=== PATIENT | female | born 1970 | race Caucasian/White ===

== ENCOUNTER → 2021-01-22 | Outpatient (CLI) | payer OTHER ==
--- NOTE | 2021-01-22 15:34 | REP ---
INDICATION: LT BREAST LUMP. And right breast screening mammogram finding warranting further diagnostic imaging. COMPARISON: None TECHNIQUE: Bilateral diagnostic digital mammography was carried out in the CC and MLO projections using both 2D and 3D modalities. In addition, diagnostic digital magnified spot compression views of each breast were obtained in the CC and MLO projections along with diagnostic spot tomographic views. Bilateral diagnostic ultrasonography over particular regions of interest was also obtained. FINDINGS: In the right breast near the 9 o'clock position there is a tiny nodular density seen mammographically which persists on spot compression views. Diagnostic ultrasonography of that region shows a complex mixed echo lesion which measures 5 mm. In the left breast over the region of a clinically palpable mass at 6 o'clock there is no mammographic evidence for ultrasonographic evidence of an abnormality. In the left breast upper outer quadrant there is a mammographic area of asymmetry which has compressed out to normal breast parenchyma on the diagnostic spot compression views. In addition, there is a small persistent nodular density seen near the 2 o'clock position. Ultrasonography of that area shows a hypoechoic lesion which measures 3 mm without significant posterior wall enhancement or increased through transmission. This has low level echoes within it. IMPRESSION: 1. There is an abnormality seen in the right breast as described above and for which ultrasound guided biopsy is recommended. ACR category 4 right mammogram and right breast ultrasound. 2. In the left breast at the 2 o'clock position there is an abnormality seen mammographically and ultrasonographically and for which ultrasound-guided biopsy is recommended. ACR category 4 left mammogram and left breast ultrasound. 3. The area of asymmetry seen mammographically in the left breast has compressed out to normal parenchyma and no abnormality is seen in that region. 4. In the left breast in the area of a clinically palpable mass there is no mammographic or ultrasonographic abnormality. <Electronically signed by Jeffry Dow > 01/22/21 [id number]
== END ==
LOC: M WHC 11:29
PROVIDERS: ATTEND Registered Nurse
DX: N63.20 Unspecified lump in the left breast, unspecified quadrant (principal); N63.10 Unspecified lump in the right breast, unspecified quadrant
CPT/HCPCS: 76642; 77066; G0279

== ENCOUNTER → 2021-03-05 | Outpatient (CLI) | payer OTHER ==
[~2021-03-05] MED LIST: ACET325C5 PO
[2021-03-05 10:17] VITALS: BP 158/88
--- NOTE | 2021-03-05 22:21 | ROOPDOC ---
[facility] Report Of Operation Report of Operation Date of the procedure:03/06/21 Diagnosis:bilateral suspicious cystic lesions seen on screening mammogram Procedure:Ultrasound guided aspiration of bilateral breast suspicious cystic lesions Proceduralist: Nimco Lundy D.O. EBL: minimal Lidocaine 1% LOT [id number] Expiration: 10/2024 Sodium Bicarbonate 8.4% LOT [id number] Expiration: 06/2022 Procedure details: Informed consent was obtained. The most common risk and possible complications including bleeding, hematoma, bruising, infection, injury to surrounding structures were explained to the patient and she expressed understanding. Patient was taken to the procedure room and placed on the bed in the supine position. Appropriate time out was done stating patients name, date of , and the procedure to be performed. Procedure was started on the right side. The right breast was prepped and draped in the usual fashion. The ultrasound was used to confirm the location of the suspicious cyst in the right breast at 9:00 4-5 centimeters from the nipple. Plain Lidocaine 1% and 8.4% sodium bicarbonate 10:1 mix was used to anesthetize the skin, and tissues along the anticipated aspiration tract. 18 G needle was used to aspirate cyst under ultrasound guidance. Aspirated fluid was serosanguinous and was sent for cytology. About 0.5 cc was aspirated. The cyst completely collapsed and images were captured. Manual pressure over the cyst aspiration site and tract was held. No bleeding was noted upon removal of the pressure. At this time, our attention was turned toward the left breast. The left breast was prepped and draped in the usual fashion. The ultrasound was used to confirm the location of the suspicious cyst in the left breast at 2:00 4 centimeters from the nipple. Plain Lidocaine 1% and 8.4% sodium bicarbonate 10:1 mix was used to anesthetize the skin, and tissues along the anticipated aspiration tract. 18 G needle was used to aspirate cyst under ultrasound guidance. Aspirated fluid was serosanguinous and was sent for evaluation. Minimal amount fluid was removed. The cyst completely collapsed and images were captured. Manual pressure over the cyst aspiration site and tract was held. No bleeding was noted upon removal of the pressure. Post procedure bilateral mammogram was done and bilateral mammographic lesions resolved post aspiration on my interpretation of imaging. Patient tolerated procedure well. Discharge instructions were discussed with the patient and she expressed understanding NIMCO LUNDY DO Mar 05, 2021 22:21
== END ==
LOC: M WHCPRO 06:49
PROVIDERS: ATTEND Surgery
DX: D24.1 Benign neoplasm of right breast (principal); D24.2 Benign neoplasm of left breast

== ENCOUNTER → 2022-10-04 | Outpatient (CLI) | payer BC ==
[~2022-10-04] MED LIST changes: +PERC5TAB12 PO
== END ==
LOC: M EKG 10:12
PROVIDERS: ATTEND Anesthesiology
DX: Z01.810 Encounter for preprocedural cardiovascular examination (principal)

== ENCOUNTER → 2022-10-04 | Outpatient (CLI) | payer BC, OTHER ==
[~2022-10-04] MED LIST changes: -PERC5TAB12 PO
== END ==
LOC: M LABSMTC 09:58
PROVIDERS: ATTEND Anesthesiology
DX: Z01.812 Encounter for preprocedural laboratory examination (principal); Z11.52 Encounter for screening for COVID-19

== ENCOUNTER 2022-10-07 07:17 | Day surgery (SDC) | payer BC, OTHER ==
[~2022-10-07] VITALS: Ht 162.6 cm; Wt 82.0 kg
[~2022-10-07 07:17] MED LIST changes: +ceFAZolin SOD 2 GM in IV 1 EA IV ONE
[2022-10-07] MEDS ORDERED: PERC5TAB12 PO (07:33)
[2022-10-07] MEDS ORDERED: LR 1,000 ML IV SCH ×3 (07:40→12:45)
[2022-10-07] MEDS ORDERED: ONDANSETRON 4MG 2ML VIAL As Ordered ONE (08:09)
[2022-10-07] MEDS ORDERED: propofoL 200 MG/20 ML VIAL As Ordered ONE (08:09)
[2022-10-07] MEDS ORDERED: KETOROLAC 60MG 2ML VIAL As Ordered ONE (08:09)
[2022-10-07] MEDS ORDERED: ROCURONIUM BROMIDE 50MG/5ML VIAL As Ordered ONE ×2 (08:09→10:03)
[2022-10-07] MEDS ORDERED: SUGAMMADEX SODIUM 500 MG/5 ML VIAL (BRIDION) As Ordered ONE (08:09)
[2022-10-07] MEDS ORDERED: LIDOCAINE 2% 100MG/5ML SDV (FOR ANES.) As Ordered ONE (08:09)
[2022-10-07 08:17] LABS: HEMATOCRIT 45.5 % (36.0-47.0); HEMOGLOBIN 15.5 g/dl (12.0-15.5); MEAN CORPUSCULAR HEMOGLOBIN 30.9 pg (27.0-33.0); MEAN CORPUSCULAR HGB CONC 34.1 g/dl (32.0-36.5); MEAN CORPUSCULAR VOLUME 90.6 fl (80.0-96.0); PLATELET COUNT, AUTOMATED 254 10^3/uL (150-450); RED BLOOD COUNT 5.02 10^6/uL (4.00-5.40); WHITE BLOOD COUNT 8.5 10^3/uL (4.0-10.0)
[2022-10-07] MEDS ORDERED: fentaNYL 100 MCG/2 ML INJECTION As Ordered ONE ×2 (08:36→10:10)
[2022-10-07] MEDS ORDERED: MIDAZOLAM INJ 2MG/2ML VIAL As Ordered ONE (08:36)
[2022-10-07 08:39] LABS: BLOOD UREA NITROGEN 10 MG/DL (9-23); CALCIUM LEVEL 8.9 MG/DL (8.5-10.1); CARBON DIOXIDE LEVEL 26 MMOL/L (20-31); CHLORIDE LEVEL 103 MMOL/L (98-107); CREATININE FOR GFR 0.71 MG/DL (0.55-1.30); GLOMERULAR FILTRATION RATE > 60.0 (>51); GLUCOSE, FASTING 93 MG/DL (60-100); POTASSIUM SERUM 4.4 MMOL/L (3.5-5.1); SODIUM LEVEL 137 MMOL/L (136-145)
[2022-10-07] MEDS ORDERED: FLUORESCEIN 10% (100MG/ML) 5ML VIAL As Ordered ONE (08:58)
[2022-10-07] MEDS ORDERED: BUPIVACAINE HCL 0.25% 30ML VIAL As Ordered ONE (08:58)
[2022-10-07] MEDS ORDERED: BUPIVACAINE/EPIN 0.25% 30ML VIAL As Ordered ONE (09:42)
[2022-10-07] MEDS ORDERED: ePHEDrine SULFATE 25 MG/5 ML(5MG/ML) SYRINGE As Ordered ONE (09:59)
[2022-10-07] MEDS ORDERED: HYDROMORPHONE HCL 0.5 MG/ 0.5 ML SYRINGE IV PRN (11:40)
[2022-10-07] MEDS ORDERED: fentaNYL 100 MCG/2 ML INJECTION IV PRN (11:40)
[2022-10-07] MEDS ORDERED: oxyCODONE 5MG TAB PO PRN (11:40)
[2022-10-07] MEDS ORDERED: ONDANSETRON 4MG 2ML VIAL IV PRN (11:40)
[2022-10-07] MEDS ORDERED: SIMETHICONE 80MG CHEW TAB PO SCH (12:00)
[2022-10-07] MEDS ORDERED: hydrALAZINE 20MG/ML 1ML VIAL As Ordered ONE (12:04)
[2022-10-07] MEDS: hydrALAZINE 20MG/ML 1ML VIAL IV PRN ×4 (12:06→12:21)
[2022-10-07] MEDS ORDERED: PROMETHAZINE 25MG/ML 1ML VIAL IV PRN (12:20)
[2022-10-07] MEDS ORDERED: METOCLOPRAMIDE INJ 10MG/2ML VIAL IV PRN (12:20)
[2022-10-07] MEDS ORDERED: PERCOCET 5MG/325MG TAB PO PRN (12:45)
[2022-10-07 14:37] VITALS: BP 102/56
[2022-10-07] MEDS ORDERED: IBUPROFEN 800 MG TAB PO SCH (18:00)
== END 2022-10-07 14:59 | disposition home or self-care (01) ==
LOC: M SDC 07:17
PROVIDERS: ATTEND Obstetrics & Gynecology
DX: N92.6 Irregular menstruation, unspecified (principal); D25.0 Submucous leiomyoma of uterus; D25.1 Intramural leiomyoma of uterus; N88.8 Other specified noninflammatory disorders of cervix uteri; R51.9 Headache, unspecified; K21.9 Gastro-esophageal reflux disease without esophagitis; F41.9 Anxiety disorder, unspecified; Z87.891 Personal history of nicotine dependence
CPT/HCPCS: 36415; 58573; 80048; 81025; 85027; 86850; 86900; 86901; 88307; J1100; J2405; S2900

== ENCOUNTER → 2024-11-02 | Outpatient (CLI) | payer BC ==
[~2024-11-02] MED LIST changes: +PERC5TAB12 PO; -ceFAZolin SOD 2 GM in IV 1 EA IV ONE
== END ==
LOC: M WHC 14:49
PROVIDERS: ATTEND Physician Assistant
DX: M79.662 Pain in left lower leg (principal); R60.0 Localized edema